=== PATIENT | male | born 1995 | race Caucasian/White ===

== ENCOUNTER 2019-09-24 16:23 | Emergency (ER) | payer OTHER ==
[2019-09-24 17:13] VITALS: BP 134/87; TEMP 98.8; O2SAT 100
--- OUTSIDE RECORDS SUMMARY | 2019-09-24 20:46 | XMS REPORT | Continuity of Care Document ---
:1995 Author Organization [employer] Care Team Providers Name Role Phone Yummly Information [facility] Unavailable Un available Problems Problem Status Onset Classification Date Comments Sourc e Date Reported ACUTE SUBDURAL [place]18[place] [facility] Unspecified [place]/17[place] intracranial 17 Medical injury with loss Th[address] ter of consciousness of unspecified duration, initial encounter HEAD INJURY Active 02/17/[address] BRAIN BLEED Active 02/17/[address] Attention deficit Resolved Problem 02/20/2017 [place] hyperactivity Medica l disorder Center (disorder) [place]TRAUMATIC [place] ACUTE SUBDURAL Medic al HEMORRHAGE Center Medications Medication Details Route Status Patient Ordering Order Source Instructions Provider Date tramadol 50 mg, PO, Active [place] hydrochloride Q4H, PRN Pain 017 Medi mabel 50 MG Oral Score 1-3, X Center Tablet 5 day, # 30 tab, 0 Refill(s) Levetiracetam 500 mg = 1 [place] 500 MG Oral tab, PO, 017 Medical Tablet Q12H, # 14 Center tab, 0 Refill(s) acetaminophen 99.5 F, 0 [place] 325 mg oral Refill(s) 017 Medical tablet Center Celebrex Notes: NSAID. Inactive [facility] Please check 017 Medical indication. Center Not for seizure. (Same As: CeleBREX) Tramadol Notes: Not to Inactive [facility] exceed 017 Medical 400mg/day. Center (Same As: Ultram) Saline Flush Notes: (Same Inactive [place] 0.9% as: BD 017 Medical Posiflush) Center Levetiracetam Notes: (Same Inactive [place] as:Keppra) 017 Medical Center sennosides, SNF Notes: (Same Inactive [facility] [place] as: Senokot) 017 Medical Center Docusate Notes: (Same Inactive [facility] as: Colace) 017 Medical (Do Not Center Crush) Regular 60 units) Inactive [facility] Insulin, Human WASTE: F/P - 017 Medi mabel 100 UNT/ML Black; E - Center Injectable Municipal Solution Trash Bin Stable for 28 days at room temperature Expires in days from _Date Dextrose 50% 12.5 gm, 25 Inactive [place] Syringe mL, Route: 017 Medical IVP, Drug Center Form: INJ, Dosing Weight 72.727, kg, PRN, PRN Abnormal Lab Result, Start date: 02/17/17 2:17:00 CDT, Duration: 30 day, Stop date: 03/19/17 1:16:00 [employer] SERVICES OFFICER Saline Flush Notes: (Same Inactive [place] 0.9% as: [place] 017 Medical Posiflush) Center Morphine Notes: (Same Inactive [facility] as:MORPhine 017 Medical Sulfate) Center Ondansetron Notes: (Same Inactive [place] as: Zofran) 017 Medical Center MEDICATION WASTE Product Size: 4 mg Product Wasted: ___ mg sodium chloride 1,000 mL, Inactive [place] 0.9% 1000 ml Rate: 75 017 Medical INJ 1,000 mL ml/hr, Infuse Cente r over: 13.3 hr, Route: IV, Dosing Weight 72.727 kg, Total Volume: 1,000, Start date: 02/17/17 2:17:00 CDT, Duration: 30 day, Stop date: 03/19/17 2:16:00 CAREER SERVICES OFFICER Acetaminophen Notes: (Same Inactive [facility] [place] 325 MG / as: [place] 017 Medical Hydrocodone 325/5) Do Center Bitartrate 5 MG not exceed Oral Tablet 4gm/day of acetaminophen . Acetaminophen Notes: Do not Inactive [facility] exceed 4 017 Medical gm/day. Center (Same as: Tylenol) Dextrose 50% 25 gm, 50 mL, No Longer [facility] Syringe Route: IVP, Active 017 Medical Drug Form: Center INJ, Dosing Weight 72.727, kg, PRN, PRN Abnormal Lab Result, Start date: 02/16/17 23:59:00 CDT, Duration: 30 day, Stop date: 03/18/17 22:58:00 CAREER SERVICES OFFICER Regular 60 units) No Longer [facility] Insulin, Human WASTE: F/P - Active 017 Medi mabel 100 UNT/ML Black; E - Center Injectable Municipal Solution Trash Bin Stable for 28 days at room temperature Expires in days from _Date Saline Flush Notes: (Same No Longer [place] 0.9% as: BD Active 017 Medical Posiflush) Center Levetiracetam Notes: Same Inactive [facility] [place] Keppra 017 Medical Mix with 100 Center mL NS, LR or D5W MEDICATION WASTE Product Size: 500 mg Product Wasted: ___ mg Morphine Notes: (Same No Longer [facility] as:MORPhine Active 017 Medical Sulfate) Center Ondansetron Notes: (Same No Longer [facility] as: Zofran) Active 017 Medical Center MEDICATION WASTE Product Size: 4 mg Product Wasted: ___ mg Acetaminophen Notes: Do not No Longer [facility] exceed 4 Active 017 Medical gm/day. Center (Same as: Tylenol) Acetaminophen Notes: (Same No Longer [facility] 325 MG / as: [place] Active 017 Medical Hydrocodone 325/5) Do Center Bitartrate 5 MG not exceed Oral Tablet 4gm/day of acetaminophen . sodium chloride 1,000 mL, No Longer [place] 0.9% 1000 ml Rate: 75 Active 017 Medical INJ 1,000 mL ml/hr, Infuse Cente r over: 13.3 hr, Route: IV, Dosing Weight 72.727 kg, Total Volume: 1,000, Start date: 02/16/17 23:59:00 CDT, Duration: 30 day, Stop date: 03/18/17 23:58:00 CAREER SERVICES OFFICER Allergies, Adverse Reactions, Alerts No Known Medication Allergies Immunizations No Data Provided for This Section Results Order Name Results Value Reference Date Interpretation Comments Magalie rce Range ELECTROLYTES AGAP 16.0 10.0 - 02/17 [place] 20.0 [facility] ELECTROLYTES eGFR 127 02/17 Result Comment: The [facility] eGFR is Center calculated using the CKD-EPI formula. In most young, healthy individuals the eGFR will be >90 mL/min/1.73m2 . The eGFR declines with age. An eGFR of 60-89 may be normal in some populations, particularly the elderly, for whom the CKD-EPI formula has not been extensively validated. Use of the eGFR is not recommended in the following populations:< br/>
Chanel viduals with unstable creatinine concentration s, including patients and those with serious co-morbid conditions.<b r/>
Patie nts with extremes in muscle mass or diet.

The data above are obtained from the National Kidney Disease Education Program (NKDEP) which additionally recommends that when the eGFR is used in patients with extremes of body mass index for purposes of drug dosing, the eGFR should be multiplied by the estimated BMI. ELECTROLYTES CO2 24 24 - 32 02/17 [facility] ELECTROLYTES Calcium Lvl 8.9 8.5 - 10.5 02/17 [place] [facility] ELECTROLYTES Chloride Lvl 107 95 - 109 02/17 [place] [facility] ELECTROLYTES Potassium Lvl 4.0 3.5 - 5.1 02/17 [facility] ELECTROLYTES Creatinine 0.81 0.50 - 02/17 [facility] Lvl 1.40 [facility] ELECTROLYTES Sodium Lvl 143 135 - 145 02/17 [place] [facility] ELECTROLYTES Glucose Lvl 77 70 - 99 02/17 [place] [facility] ELECTROLYTES BUN 17 7 - 22 02/17 [facility] HEMATOLOGY PTT 28.6 22.9 - 02/17 [place] 35.8 [facility] HEMATOLOGY PT 12.3 12.0 - 02/17 [place] 14.7 [facility] HEMATOLOGY INR 0.91 0.85 - 02/17 [place] 1.17 [facility] HEMATOLOGY Platelet 194 133 - 450 02/17 [facility] HEMATOLOGY RDW 13.8 11.5 - 02/17 [place] 14.5 [facility] HEMATOLOGY MPV 10.0 7.4 - 10.4 02/17 [facility] HEMATOLOGY MCH 29.2 27.0 - 02/17 [place] 31.0 [facility] HEMATOLOGY MCV 88.0 80.0 - 02/17 94.0 [facility] HEMATOLOGY Hct 41.0 42.0 - 02/17 [place] 54.0 [facility] HEMATOLOGY RBC 4.66 4.70 - 02/17 [place] 6. [facility] HEMATOLOGY MCHC 33.2 32.0 - 02/17 [place] 36.0 [facility] HEMATOLOGY WBC 9.0 3.7 - 10.4 02/17 [facility] HEMATOLOGY Hgb 13.6 14.0 - 02/17 18.0 [facility] HEMATOLOGY Segs-Bands # 4.0 1.5 - 8.1 02/17 [facility] HEMATOLOGY Lymphocytes # 4.3 1.0 - 5.5 02/17 [facility] HEMATOLOGY Eosinophils # 0.1 0.0 - 0.5 02/17 [facility] HEMATOLOGY Monocytes # 0.6 0.0 - 0.8 02/17 [facility] HEMATOLOGY Monocytes 6.9 2.0 - 12.0 02/17 [facility] HEMATOLOGY Basophils 0.5 0.0 - 1.0 02/17 [facility] HEMATOLOGY Eosinophils 0.7 0.0 - 4.0 02/17 [facility] HEMATOLOGY Lymphocytes 47.1 20.0 - 02/17 40.0 [facility] HEMATOLOGY Segs 44.8 45.0 - 02/17 [place] 75.0 [facility] CHEM PANEL eGFR 122 02/17 [facility] Comment: The Medical eGFR is Center calculated using the CKD-EPI formula. In most young, healthy individuals the eGFR will be >90 mL/min/1.73m2 . The eGFR declines with age. An eGFR of 60-89 may be normal in some populations, particularly the elderly, for whom the CKD-EPI formula has not been extensively validated. Use of the eGFR is not recommended in the following populations:< br/>
Chanel viduals with unstable creatinine concentration s, including patients and those with serious co-morbid conditions.<b r/>
Patie nts with extremes in muscle mass or diet.

The data above are obtained from the National Kidney Disease Education Program (NKDEP) which additionally recommends that when the eGFR is used in patients with extremes of body mass index for purposes of drug dosing, the eGFR should be multiplied by the estimated BMI. CHEM PANEL Calcium Lvl 9.0 8.5 - 10.5 02/17 [facility] CHEM PANEL CO2 25 24 - 32 02/17 [facility] CHEM PANEL BUN 13 7 - 22 02/17 2016 [facility] CHEM PANEL Creatinine 0.89 0.50 - 02/17 [place] Lvl 1.40 [facility] CHEM PANEL Glucose Lvl 108 70 - 99 02/17 [facility] CHEM PANEL Sodium Lvl 141 135 - 145 02/17 2016 [facility] CHEM PANEL Potassium Lvl 3.9 3.5 - 5.1 02/17 [facility] CHEM PANEL Chloride Lvl 107 95 - 109 02/17 [facility] CHEM PANEL AGAP 12.9 10.0 - 02/17 [place] 20.0 [facility] HEMATOLOGY Segs-Bands # 4.1 1.5 - 8.1 02/17 [facility] HEMATOLOGY Basophils 0.3 0.0 - 1.0 02/17 [facility] HEMATOLOGY Eosinophils 0.5 0.0 - 4.0 02/17 [facility] HEMATOLOGY Monocytes 5.3 2.0 - 12.0 02/17 [facility] HEMATOLOGY Lymphocytes 47.3 20.0 - 02/17 [place] 40.0 [facility] HEMATOLOGY Monocytes # 0.5 0.0 - 0.8 02/17 [facility] HEMATOLOGY Lymphocytes # 4.2 1.0 - 5.5 02/17 [facility] HEMATOLOGY Segs 46.6 45.0 - 02/17 [place] 75.0 [facility] HEMATOLOGY WBC 8.9 3.7 - 10.4 02/17 [facility] HEMATOLOGY Hgb 14.3 14.0 - 02/17 [place] 18.0 [facility] HEMATOLOGY RBC 4.93 4.70 - 02/17 [facility] 6. [facility] HEMATOLOGY MCHC 33.2 32.0 - 02/17 [facility] 36.0 /2016 [facility] HEMATOLOGY MCH 28.9 27.0 - 02/17 [facility] 31.0 [facility] HEMATOLOGY MCV 87.2 80.0 - 02/17 [facility] 94.0 /2016 [facility] HEMATOLOGY Hct 43.0 42.0 - 02/17 [place] 54.0 /2016 [facility] HEMATOLOGY MPV 9.6 7.4 - 10.4 02/17 [facility] HEMATOLOGY Platelet 193 133 - 450 02/17 [facility] HEMATOLOGY RDW 14.0 11.5 - 02/17 [facility] 14.5 [facility] HEMATOLOGY INR 0.91 0.85 - 02/17 [facility] 1.17 [facility] HEMATOLOGY PTT 30.1 22.9 - 02/17 [facility] 35.8 /2016 [facility] HEMATOLOGY PT 12.3 12.0 - 02/17 [facility] 14.7 [facility] Pathology Reports No Data Provided for This Section Diagnostic Reports Report Value Date Source Brain wo contrast CT 02/16/2017 [facility] dical EXAMINATION: CT head without contrast Center DATE: 02/16/2017 INDICATION: Subdural hematoma. FINDINGS: Noncontrast CT images of the head are compared to a study acquired 6 hours earlier the same day at an outside institution. The previously noted subdura l hemorrhage along the anterior falx and only be identified in retrospect on the current study. There certainly no increase in size. The remainder the brain is c ompletely normal. The calvarium and skull base are intact IMPRESSION: Resolving minimal intracranial hemorrhage. Brain-Outside Consult 02/16/2017 [facility] CT EXAMINATION: CT head without contrast Center DATE: 02/16/2017 INDICATION: Trauma. FINDINGS: Noncontrast CT images of the head and straight trace amount of subdural hemorrhage along the left aspect of the falx. There is no other intracranial abnormality. The calvarium and skull base are intact. IMPRESSION: Minimal flow seen subdural hemorrhage, concur wi th outside report. Spine-Outside Consult 02/16/2017 [facility] CT EXAMINATION: CT cervical spine without contrast Center DATE: 02/16/2017 INDICATION: Trauma. FINDINGS: Noncontrast CT images of the cervical spine are performed with multiplanar reformatting at an outside institution and submitted for reinterpretation following transfer. There is no fracture or disl ocation. There is some reversal the normal cervical lordosis, likely secondary to positioning. IMPRESSION: Negative exam; concur with outside report. Consultation Notes No Data Provided for This Section Discharge Summaries No Data Provided for This Section History and Physicals No Data Provided for This Section Vital Signs Vital Sign Value Date Comments Source Weight 68.182 02/17/2017 [facility] Heart Rate 103 02/17/2017 [facility] Systolic (mm Hg) 127 02/17/2017 [facility] dical Center Diastolic (mm Hg) 84 02/17/2017 [facility] Respitory Rate 18 02/17/2017 [facility] Temperature Oral (F) 98.0 F 02/17/2017 [facility] BMI Calculated 26.63 02/17/2017 [facility] Weight 68.182 02/17/2017 [facility] Height 160.02 cm 02/17/2017 [facility] Center Temperature Oral (F) 98.2 F 02/17/2017 [facility] Respitory Rate 18 02/17/2017 [facility] Heart Rate 87 02/17/2017 [facility] Systolic (mm Hg) 129 02/17/2017 [facility] dical Center Diastolic (mm Hg) 73 02/17/2017 [facility] BMI Calculated 26.63 02/17/2017 [facility] Height 160.02 cm 02/17/2017 [facility] Weight 68.182 02/17/2017 [facility] Systolic (mm Hg) 126 02/17/2017 [facility] dical Center Diastolic (mm Hg) 76 02/17/2017 [facility] Respitory Rate 18 02/17/2017 [facility] Heart Rate 105 02/17/2017 [facility] Temperature Oral (F) 98.6 F 02/17/2017 [facility] BMI Calculated 25.88 02/17/2017 [facility] Weight 72.727 02/17/2017 [facility] Systolic (mm Hg) 119 02/17/2017 [facility] dical Center Diastolic (mm Hg) 74 02/17/2017 [facility] Heart Rate 83 02/17/2017 [facility] Temperature Oral (F) 98.3 F 02/17/2017 [facility] Respitory Rate 18 02/17/2017 [facility] Height 167.64 cm 02/17/2017 [facility] Systolic (mm Hg) 115 02/17/2017 [facility] Diastolic (mm Hg) 55 02/17/2017 [facility] Heart Rate 95 02/17/2017 [facility] Respitory Rate 18 02/17/2017 [facility] Weight 81.818 02/17/2017 [facility] BMI Calculated 29.11 02/17/2017 [facility] Temperature Oral (F) 97.8 F 02/17/2017 [facility] Height 167.64 cm 02/17/2017 [facility] Encounters Location Location Encounter Encounter Reason Attending ADM DC Stat us Source Details Type Number For Provider Date Date Visit [facility] [id number] Julio Grier 02/17 02/17 [facility] [id number] Julio Grier 02/17 02/17 [facility] Observation [id number] Julio Grier 02/17 02/17 [facility] Procedures No Data Provided for This Section Assessment and Plan No Data Provided for This Section Plan of Care No Data Provided for This Section Social History Social History Date Source Social History TypeResponse 02/17/2017 [facility] Smoking Status Current every day smoker; Type: Cigarett es; Exposure to Tobacco Smoke None; Cigarette Smoking Last 365 Days Yes; Reg Smoking Cessation Counseling No Family History No Data Provided for This Section Advance Directives No Data Provided for This Section Functional Status No Data Provided for This Section
--- NOTE | 2019-09-28 16:03 | EDPHYS ---
Physician Documentation [facility] Name: Lawrence Antunez III Age: 24 yrs Sex: Male : 1995 Arrival Date: 09/24/2019 Time: 16:27 Bed 23 Private MD: ED Physician Joseph Saxena HPI: 09/23 16:58 This 24 yrs old Male presents to ER via Ambulatory with complaints of jmm Laceration To Hand. 16:58 The patient has a laceration occurred at home. Onset: The symptoms/episode jmm began/occurred acutely, just prior to arrival. Associated signs and symptoms: Pertinent negatives: heavy bleeding, loss of consciousness. This is a 24 year old male with no chronic medical conditions that presents to the ED with complaints of a laceration to his left hand. Patient states he fell back wards on a broken metal tank yesterday. Patient used super glue to repair wound. . Historical: - Allergies: 16:39 No Known Allergies; ll1 - PMHx: 16:39 None; ll1 - PSHx: 16:39 None; ll1 - Immunization history:: Last tetanus immunization: < 5 years ago. - Social history:: Smoking status: Patient reports the use of cigarette tobacco products, smokes one-half pack cigarettes per day, Patient/guardian denies using alcohol, street drugs, tobacco products. ROS: 16:59 Constitutional: Negative for fever, chills, and weight loss, Cardiovascular: Negative jmm for chest pain, palpitations, and edema, Respiratory: Negative for shortness of breath, cough, wheezing, and pleuritic chest pain. 16:59 Skin: Positive for laceration(s). 16:59 All other systems are negative. Exam: 16:59 Constitutional: This is a well developed, well nourished patient who is awake, alert, jmm and in no acute distress. Head/Face: atraumatic. Eyes: EOMI, no conjunctival erythema appreciated ENT: Moist Mucus Membranes Neck: Trachea midline, Supple Chest/axilla: Normal chest wall appearance and motion. Cardiovascular: Regular rate and rhythm. No edema appreciated Respiratory: Normal respirations, no respiratory distress appreciated Back: Normal ROM 16:59 Musculoskeletal/extremity: FROM appreciated to the left hand, < 2 sec dist cap refill m compartments are soft, NVI. 16:59 Skin: 4 cm laceration noted to the hypothenar region of the left hand, no active bleeding appreciated, compartments are soft. 16:59 Neuro: Exam negative for Orientation: is normal, Mentation: is normal, Memory: is normal. 16:59 Psych: Behavior/mood is pleasant, cooperative. Vital Signs: 16:36 BP 134 / 87; Pulse 96; Resp 17; Temp 98.8; Pulse Ox 100% ; Weight 77.11 kg; Height 5 ll1 ft. 8 in. (172.72 cm); Pain 7/10; 16:36 Body Mass Index 25.85 (77.11 kg, 172.72 cm) ll1 MDM: 16:52 Patient medically screened. [facility] 17:01 Data reviewed: vital signs, nurses notes. Counseling: I had a detailed discussion with jam the patient and/or guardian regarding: the historical points, exam findings, and any diagnostic results supporting the discharge/admit diagnosis, the need for outpatient follow up, to return to the emergency department if symptoms worsen or persist or if there are any questions or concerns that arise at home. ED course: Tetanus is UTD, patient out of window for safe window for repair. Patient given wound infection return precautions. Patient understood and agrees with the plan of care. . Administered Medications: No medications were administered Disposition: 09/24/19 17:02 Discharged to Home. Impression: Laceration of the Hand. - Condition is Stable. - Discharge Instructions: Nonsutured Laceration Care. - Prescriptions for Cephalexin 500 mg Oral Capsule - take 1 capsule by ORAL route every 6 hours for 10 days; 40 capsule. - Medication Reconciliation Form, Thank You Letter, Antibiotic Education, Prescription Opioid Use form. - Follow up: Private Physician; When: 2 - 3 days; Reason: Recheck today's complaints, Continuance of care, Re-evaluation by your physician. Addendum: 09/26/2019 07:55 Co-signature as Attending Physician, Joseph Saxena MD I agree with the assessment and k dr plan of care. Signatures: Joseph Saxena MD MD kdr Mickail, Joel, PA PA jmm Williams, Irene, RN RN iw Juan Antonio Anderson RN RN ll1 Corrections: (The following items were deleted from the chart) 09/23 17:07 17:02 09/24/2019 17:02 Discharged to Home. Impression: Laceration of the Hand. iw Condition is Stable. Forms are Medication Reconciliation Form, Thank You Letter, Antibiotic Education, Prescription Opioid Use. Follow up: Private Physician; When: 2 - 3 days; Reason: Recheck today's complaints, Continuance of care, Re-evaluation by your physician. jam
--- NOTE | 2019-09-28 16:03 | ER ---
Nurse's Notes [facility] Name: Lawrence Antunez III Age: 24 yrs Sex: Male : 1995 Arrival Date: 09/24/2019 Time: 16:27 Bed 23 Private MD: Diagnosis: Laceration of the Hand Presentation: 09/23 16:36 Chief complaint: Patient states: Left hand laceration yesterday at 0800. On xin ll1 metal. Site is red, painful now. Coronavirus screen: Proceed with normal triage. Patient denies a cough. Patient denies shortness of breath or difficulty breathing. Patient denies measured and/or subjective temperature greater than 100.4F prior to today's visit. Patient denies travel on a cruise ship or to a country the [facility] [place] currently lists as an affected area. Patient denies contact with known and/or suspected case of COVID-19. Ebola Screen: Patient denies travel to an Ebola-affected area in the 21 days before illness onset. Complicating Factors: There are no complicating factors for this patient. Initial Sepsis Screen: Does the patient meet any 2 criteria? HR > 90 bpm. No. Patient's initial sepsis screen is negative. Does the patient have a suspected source of infection? No. Patient's initial sepsis screen is negative. Risk Assessment: Do you want to hurt yourself or someone else? Patient reports no desire to harm self or others. Onset of symptoms was September 23, 2019. 16:36 Method Of Arrival: Ambulatory ll1 16:36 Acuity: NORI 4 ll1 Triage Assessment: 16:30 General: Appears in no apparent distress. Behavior is calm. iw Historical: - Allergies: 16:39 No Known Allergies; ll1 - PMHx: 16:39 None; ll1 - PSHx: 16:39 None; ll1 - Immunization history:: Last tetanus immunization: < 5 years ago. - Social history:: Smoking status: Patient reports the use of cigarette tobacco products, smokes one-half pack cigarettes per day, Patient/guardian denies using alcohol, street drugs, tobacco products. Screenin:00 Abuse screen: Denies threats or abuse. Denies injuries from another. Nutritional iw screening: No deficits noted. Tuberculosis screening: No symptoms or risk factors identified. Fall Risk None identified. Assessment: 16:30 General: Appears in no apparent distress. comfortable, Behavior is calm, cooperative. iw Pain: Complains of pain in left hand. Neuro: Level of Consciousness is awake, alert, obeys commands, Oriented to person, place, time, situation. Cardiovascular: Patient's skin is warm and dry. Respiratory: Respiratory effort is even, unlabored, Respiratory pattern is regular. Musculoskeletal: Range of motion: intact in all extremities. Injury Description: Laceration sustained to palm of left hand is jagged, 0.5 to 2.5 cm long. Vital Signs: 16:36 BP 134 / 87; Pulse 96; Resp 17; Temp 98.8; Pulse Ox 100% ; Weight 77.11 kg; Height 5 ll1 ft. 8 in. (172.72 cm); Pain 7/10; 16:36 Body Mass Index 25.85 (77.11 kg, 172.72 cm) 1 ED Course: 16:27 Patient arrived in ED. [facility] 16:34 Chip Flynn PA is PHCP. [facility] 16:34 Joseph Saxena MD is Attending Physician. [facility] 16:36 Patient has correct armband on for positive identification. iw 16:38 Triage completed. ll1 16:39 Arm band placed on. 1 17:00 Loren Burkett, RN is Primary Nurse. iw 17:05 No provider procedures requiring assistance completed. Patient did not have IV access iw during this emergency room visit. Administered Medications: No medications were administered Outcome: 17:02 Discharge ordered by . [facility] 17:06 Discharged to home ambulatory. iw 17:06 Condition: good 17:06 Discharge instructions given to patient, Instructed on discharge instructions, follow up and referral plans. medication usage, Demonstrated understanding of instructions, follow-up care, medications, Prescriptions given X 1. 17:07 Patient left the ED. iw Signatures: Chip Flynn PA PA jmm Williams, Irene, RN RN Gabino Sosa 1 Juan Antonio Anderson RN RN [facility]
== END 2019-09-24 17:07 | disposition home or self-care (01) ==
LOC: ER 16:23
DX: S61.412A Laceration without foreign body of left hand, initial encounter (principal); W26.8XXA Contact with other sharp object(s), not elsewhere classified, initial encounter; Y93.9 Activity, unspecified; Y92.9 Unspecified place or not applicable; F17.210 Nicotine dependence, cigarettes, uncomplicated
CPT/HCPCS: 99282

== ENCOUNTER 2019-10-28 08:02 | Emergency (ER) | payer OTHER ==
--- OUTSIDE RECORDS SUMMARY | 2019-10-28 08:07 | XMS REPORT | Continuity of Care Document ---
:1995 Author Organization [employer] Care Team Providers Name Role Phone [email or web address] Information Modulus Unavailable Un available Problems Problem Status Onset Classification Date Comments Sourc e Date Reported ACUTE SUBDURAL [place] 02/18/20 [place] HEMAT[facility] Unspecified [place]/17[place] intracranial 17 Medical injury with loss [address] [facility] of consciousness of unspecified duration, initial encounter HEAD INJURY Active 02/17/[address] BRAIN BLEED Active 02/17/[address] Attention deficit Resolved Problem 02/20/2017 M [...] Medical tablet Center Celebrex Notes: NSAID. Inactive [facility] Please check 017 Medical indication. Center Not for seizure. (Same As: CeleBREX) Tramadol Notes: Not to Inactive [facility] exceed 017 Medical 400mg/day. Center (Same As: Ultram) Saline Flush Notes: (Same Inactive [place] 0.9% as: BD 017 Medical Posiflush) Center Levetiracetam Notes: (Same Inactive [place] as:Keppra) 017 Medical Center sennosides, RETIREMENT Notes: (Same Inactive [facility] [place] as: Senokot) 017 Medical Center Docusate Notes: (Same Inactive [facility] as: Colace) 017 Medical (Do Not Center Crush) Regular 60 units) Inactive [facility] Insulin, Human WASTE: F/P - 017 Medi [...] Duration: 30 day, Stop date: 03/19/17 1:16:00 BULK LOADER Saline Flush Notes: (Same Inactive [place] 0.9% as: BD 017 Medical Posiflush) Center Morphine Notes: (Same Inactive [facility] as:MORPhine 017 Medical Sulfate) Center Ondansetron Notes: [...] Duration: 30 day, Stop date: 03/19/17 2:16:00 BULK LOADER Acetaminophen Notes: (Same Inactive [facility] [place] 325 MG / as: [place] 017 Medical Hydrocodone 325/5) Do Center Bitartrate 5 MG not exceed Oral Tablet 4gm/day of acetaminophen . Acetaminophen Notes: Do not Inactive [facility] exceed 4 017 Medical gm/day. Center (Same as: Tylenol) Dextrose 50% 25 gm, 50 mL, No Longer [facility] Syringe Route: IVP, Active 017 Medical Drug Form: Center INJ, Dosing Weight 72.727, kg, PRN, PRN Abnormal Lab Result, Start date: 02/16/17 23:59:00 CDT, Duration: 30 day, Stop date: 03/18/17 22:58:00 BULK LOADER Regular 60 units) No Longer [facility] Insulin, Human WASTE: F/P - Active 017 Medi mabel 100 UNT/ML Black; E - Center Injectable [employer] Trash Bin Stable for 28 days at room temperature Expires in days from _Date Saline Flush Notes: (Same No Longer [place] 0.9% as: BD Active 017 Medical Posiflush) Center Levetiracetam Notes: Same Inactive [facility] [place] as Keppra 017 Medical Mix with 100 Center mL NS, LR or D5W MEDICATION WASTE Product Size: 500 mg Product Wasted: ___ mg Morphine Notes: (Same No Longer [facility] as:MORPhine Active 017 Medical Sulfate) Center Ondansetron Notes: (Same No Longer [facility] as: Zofran) Active 017 Medical Center MEDICATION WASTE Product Size: 4 mg Product Wasted: ___ mg Acetaminophen Notes: Do not No Longer [facility] exceed 4 Active 017 Medical gm/day. Center (Same as: Tylenol) Acetaminophen Notes: (Same No Longer [facility] 325 MG / as: [place] Active 017 Medical Hydrocodone 325/5) Do Center [...] Duration: 30 day, Stop date: 03/18/17 23:58:00 BULK LOADER Allergies, Adverse Reactions, Alerts No Known Medication Allergies Immunizations No Data Provided for This Section Results Order Name Results Value Reference Date Interpretation Comments Magalie rce Range ELECTROLYTES AGAP 16.0 10.0 - 02/17 [place] 20.0 [facility] ELECTROLYTES eGFR 127 02/17 Result Comment: [facility] eGFR is Center calculated using the CKD-EPI [...] ELECTROLYTES CO2 24 24 - 32 02/17 [facility] ELECTROLYTES Calcium Lvl 8.9 8.5 - 10.5 02/17 [place] [facility] ELECTROLYTES Chloride Lvl 107 95 - 109 02/17 [place] [facility] ELECTROLYTES Potassium Lvl 4.0 3.5 - 5.1 02/17 [facility] ELECTROLYTES Creatinine 0.81 0.50 - 02/17 [facility] Lvl 1.40 [facility] ELECTROLYTES Sodium Lvl 143 135 - 145 02/17 [place] [facility] ELECTROLYTES Glucose Lvl 77 70 - 99 02/17 [place] [facility] ELECTROLYTES BUN 17 7 - 22 02/17 [facility] HEMATOLOGY PTT 28.6 22.9 - 02/17 [place] 35.8 [facility] HEMATOLOGY PT 12.3 12.0 - 02/17 [place] 14.7 [facility] HEMATOLOGY INR 0.91 0.85 - 02/17 [place] 1.17 [facility] HEMATOLOGY Platelet 194 133 - 450 02/17 [facility] HEMATOLOGY RDW 13.8 11.5 - 02/17 [place] 14.5 [facility] HEMATOLOGY MPV 10.0 7.4 - 10.4 02/17 [facility] HEMATOLOGY MCH 29.2 27.0 - 02/17 [place] 31.0 [facility] HEMATOLOGY MCV 88.0 80.0 - 02/17 94.0 [facility] HEMATOLOGY Hct 41.0 42.0 - 02/17 [place] 54.0 [facility] HEMATOLOGY RBC 4.66 4.70 - 02/17 [place] 6. [facility] HEMATOLOGY MCHC 33.2 32.0 - 02/17 [place] 36.0 [facility] HEMATOLOGY WBC 9.0 3.7 - 10.4 02/17 [facility] HEMATOLOGY Hgb 13.6 14.0 - 02/17 18.0 [facility] HEMATOLOGY Segs-Bands # 4.0 1.5 - 8.1 02/17 [facility] HEMATOLOGY Lymphocytes # 4.3 1.0 - 5.5 02/17 [facility] HEMATOLOGY Eosinophils # 0.1 0.0 - 0.5 02/17 [facility] HEMATOLOGY Monocytes # 0.6 0.0 - 0.8 02/17 [facility] HEMATOLOGY Monocytes 6.9 2.0 - 12.0 02/17 [facility] HEMATOLOGY Basophils 0.5 0.0 - 1.0 02/17 [facility] HEMATOLOGY Eosinophils 0.7 0.0 - 4.0 02/17 [facility] HEMATOLOGY Lymphocytes 47.1 20.0 - 02/17 40.0 [facility] HEMATOLOGY Segs 44.8 45.0 - 02/17 [place] 75.0 [facility] CHEM PANEL eGFR 122 02/17 [facility] Comment: The Medical eGFR is Center calculated [...] Calcium Lvl 9.0 8.5 - 10.5 02/17 [facility] CHEM PANEL CO2 25 24 - 32 02/17 [facility] CHEM PANEL BUN 13 7 - 22 02/17 2016 [facility] CHEM PANEL Creatinine 0.89 0.50 - 02/17 [place] Lvl 1.40 [facility] CHEM PANEL Glucose Lvl 108 70 - 99 02/17 [facility] CHEM PANEL Sodium Lvl 141 135 - 145 02/17 2016 [facility] CHEM PANEL Potassium Lvl 3.9 3.5 - 5.1 02/17 [facility] CHEM PANEL Chloride Lvl 107 95 - 109 02/17 [facility] CHEM PANEL AGAP 12.9 10.0 - 02/17 [place] 20.0 [facility] HEMATOLOGY Segs-Bands # 4.1 1.5 - 8.1 02/17 [facility] HEMATOLOGY Basophils 0.3 0.0 - 1.0 02/17 [facility] HEMATOLOGY Eosinophils 0.5 0.0 - 4.0 02/17 [facility] HEMATOLOGY Monocytes 5.3 2.0 - 12.0 02/17 [facility] HEMATOLOGY Lymphocytes 47.3 20.0 - 02/17 [place] 40.0 [facility] HEMATOLOGY Monocytes # 0.5 0.0 - 0.8 02/17 [facility] HEMATOLOGY Lymphocytes # 4.2 1.0 - 5.5 02/17 [facility] HEMATOLOGY Segs 46.6 45.0 - 02/17 [place] 75.0 [facility] HEMATOLOGY WBC 8.9 3.7 - 10.4 02/17 [facility] HEMATOLOGY Hgb 14.3 14.0 - 02/17 [place] 18.0 [facility] HEMATOLOGY RBC 4.93 4.70 - 02/17 [facility] 6. [facility] HEMATOLOGY MCHC 33.2 32.0 - 02/17 [facility] 36.0 /2016 [facility] HEMATOLOGY MCH 28.9 27.0 - 02/17 [facility] 31.0 [facility] HEMATOLOGY MCV 87.2 80.0 - 02/17 [facility] 94.0 /2016 [facility] HEMATOLOGY Hct 43.0 42.0 - 02/17 [place] 54.0 /2016 [facility] HEMATOLOGY MPV 9.6 7.4 - 10.4 02/17 [facility] HEMATOLOGY Platelet 193 133 - 450 02/17 [facility] HEMATOLOGY RDW 14.0 11.5 - 02/17 [facility] 14.5 [facility] HEMATOLOGY INR 0.91 0.85 - 02/17 [facility] 1.17 [facility] HEMATOLOGY PTT 30.1 22.9 - 02/17 [facility] 35.8 /2016 [facility] HEMATOLOGY PT 12.3 12.0 - 02/17 [facility] 14.7 [facility] Pathology Reports No Data Provided for This Section Diagnostic Reports Report Value Date Source Brain wo contrast CT 02/16/2017 [facility] dical EXAMINATION: CT head without contrast [...] Resolving minimal intracranial hemorrhage. Brain-Outside Consult 02/16/2017 [facility] CT EXAMINATION: CT head without contrast Center DATE: 02/16/2017 INDICATION: Trauma. FINDINGS: Noncontrast CT images of the head and straight trace amount of subdural hemorrhage along the left aspect of the falx. There is no other intracranial abnormality. The calvarium and skull base are intact. IMPRESSION: Minimal flow seen subdural hemorrhage, concur wi th outside report. Spine-Outside Consult 02/16/2017 [facility] CT EXAMINATION: CT cervical spine without contrast [...] Value Date Comments Source Weight 68.182 02/17/2017 [facility] [place] [facility] Heart Rate 103 02/17/2017 [facility] [place] [facility] Center Systolic (mm Hg) 127 02/17/2017 [facility] dical Center Diastolic (mm Hg) 84 02/17/2017 [facility] Respitory Rate 18 02/17/2017 [facility] Temperature Oral (F) 98.0 F 02/17/2017 [facility] [place] BMI Calculated 26.63 02/17/2017 [facility] Weight 68.182 02/17/2017 [facility] [place] [facility] [place] [facility] Height 160.02 cm 02/17/2017 [facility] Center Temperature Oral (F) 98.2 F 02/17/2017 [facility] [place] Respitory Rate 18 02/17/2017 [facility] Heart Rate 87 02/17/2017 [facility] [place] [facility] [place] [facility] Systolic (mm Hg) 129 02/17/2017 [facility] dical Center Diastolic (mm Hg) 73 02/17/2017 [facility] BMI Calculated 26.63 02/17/2017 [facility] Height 160.02 cm 02/17/2017 [facility] [place] [facility] [place] [facility] Weight 68.182 02/17/2017 [facility] [place] [facility] [place] [facility] Center Systolic (mm Hg) 126 02/17/2017 [facility] dical Center Diastolic (mm Hg) 76 02/17/2017 [facility] Respitory Rate 18 02/17/2017 [facility] Heart Rate 105 02/17/2017 [facility] [place] [facility] [place] [facility] Center Temperature Oral (F) 98.6 F 02/17/2017 [facility] [place] BMI Calculated 25.88 02/17/2017 [facility] Weight 72.727 02/17/2017 [facility] [place] [facility] [place] [facility] Center Systolic (mm Hg) 119 02/17/2017 [facility] dical Center Diastolic (mm Hg) 74 02/17/2017 [facility] Heart Rate 83 02/17/2017 [facility] Temperature Oral (F) 98.3 F 02/17/2017 [facility] [place] Respitory Rate 18 02/17/2017 [facility] Height 167.64 cm 02/17/2017 [facility] Systolic (mm Hg) 115 02/17/2017 [facility] Diastolic (mm Hg) 55 02/17/2017 [facility] Heart Rate 95 02/17/2017 [facility] Respitory Rate 18 02/17/2017 [facility] Weight 81.818 02/17/2017 [facility] BMI Calculated 29.11 02/17/2017 [facility] Temperature Oral (F) 97.8 F 02/17/2017 [facility] [place] Height 167.64 cm 02/17/2017 [facility] Encounters Location Location Encounter Encounter Reason Attending ADM DC Stat us Source Details Type Number For Provider Date Date Visit [facility] [id number] Julio Grier 02/17 02/17 [facility] [id number] Julio Grier 02/17 02/17 [facility] Observation [id number] Julio Grier 02/17 02/17 [facility] Procedures No Data Provided for This Section Assessment and Plan No Data Provided for This Section Plan of Care No Data Provided for This Section Social History Social History Date Source Social History TypeResponse 02/17/2017 [facility] Smoking Status Current every day smoker; Type: Cigarett es; Exposure to Tobacco Smoke None; Cigarette Smoking Last 365 Days Yes; Reg Smoking Cessation Counseling No Family History No Data Provided for This Section Advance Directives No Data Provided for This Section Functional Status No Data Provided for This Section
--- NOTE | 2019-10-28 09:41 | EDPHYS ---
Physician Documentation [facility] Name: Lawrence Antunez III Age: 24 yrs Sex: Male : 1995 Arrival Date: 10/28/2019 Time: 08:02 Bed 11 Private MD: ED Physician Joseph Saxena HPI: 10/27 08:20 This 24 yrs old Male presents to ER via Unassigned with complaints of R/O cp COVID. 08:20 The patient or guardian reports cough, that is intermittent, with no sputum. Onset: The cp symptoms/episode began/occurred 2 day(s) ago. Associated signs and symptoms: Pertinent positives: diarrhea, nausea, sore throat, vomiting, Pertinent negatives: ear ache, fever, active vomiting. 08:20 Severity of symptoms: in the emergency department the symptoms are unchanged despite cp home interventions. Patient denies any known exposure to COVID-19. ROS: 08:22 Constitutional: Negative for body aches, chills, fever, poor PO intake. cp 08:22 Eyes: Negative for injury, pain, redness, and discharge. cp 08:22 ENT: Positive for sore throat, Negative for ear pain, difficulty swallowing, difficulty handling secretions. 08:22 Respiratory: Positive for cough, with no reported sputum, Negative for shortness of breath, wheezing. 08:22 Abdomen/GI: Positive for nausea, vomiting, and diarrhea, Negative for abdominal pain, constipation, anorexia. 08:22 : Negative for urinary symptoms. 08:22 Skin: Negative for rash. 08:22 Neuro: Negative for dizziness, headache, weakness. 08:22 All other systems are negative. Exam: 08:25 Constitutional: The patient appears in no acute distress, alert, awake, non-toxic, well cp developed, well nourished. 08:25 Head/Face: Normocephalic, atraumatic. cp 08:25 Eyes: Periorbital structures: appear normal, Conjunctiva: normal, no exudate, no injection, Lids and lashes: appear normal, bilaterally. 08:25 ENT: External ear(s): are unremarkable, Ear canal(s): are normal, clear, TM's: bulging, is not appreciated, bilaterally, dullness, bilaterally, erythema, is not appreciated, bilaterally, Nose: is normal, Mouth: is normal, Posterior pharynx: Airway: no evidence of obstruction, patent, Tonsils: no enlargement, no exudate, swelling, is not appreciated, erythema, that is mild, exudate, is not appreciated. 08:25 Neck: ROM/movement: is normal, is supple, no meningismus, no nuchal rigidity, Lymph nodes: no appreciated lymphadenopathy. 08:25 Chest/axilla: Inspection: normal. 08:25 Respiratory: the patient does not display signs of respiratory distress, Respirations: normal, no use of accessory muscles, no retractions, labored breathing, is not present, Breath sounds: are clear throughout, no decreased breath sounds, no stridor, no wheezing. 08:25 Abdomen/GI: Exam negative for discomfort, distension, guarding, Inspection: abdomen appears normal. 08:25 Skin: no rash present. Vital Signs: 08:30 BP 129 / 76; Pulse 89; Resp 18; Temp 99.1(TE); Pulse Ox 100% on R/A; Weight 65.77 kg; dm5 Height 5 ft. 9 in. (175.26 cm); Pain 5/10; 08:30 Body Mass Index 21.41 (65.77 kg, 175.26 cm) dm5 MDM: 08:19 Patient medically screened. cp 08:45 Differential diagnosis: bronchitis, flu, URI, strep throat, COVID-19. cp 09:38 Data reviewed: vital signs, nurses notes, lab test result(s), and as a result, I will cp discharge patient. 09:38 Counseling: I had a detailed discussion with the patient and/or guardian regarding: the cp historical points, exam findings, and any diagnostic results supporting the discharge/admit diagnosis, lab results, to return to the emergency department if symptoms worsen or persist or if there are any questions or concerns that arise at home. 09:38 ED course: VSS. Patient instructed to self quarantine until COVID-19 results are known. cp 10/27 08:33 Order name: COVID-19 cp 10/27 08:33 Order name: Flu cp 10/27 08:33 Order name: Strep cp 10/27 08:33 Order name: Document PUI#; Complete Time: 09:39 cp 10/27 08:33 Order name: Droplet/Contact Precautions; Complete Time: 09:39 cp 10/27 09:31 Order name: Throat Culture EDMS 10/27 08:33 Order name: Labs collected and sent; Complete Time: 09:38 cp 07 08:33 Order name: [facility] [phone]/ ; Complete Time: 09:38 cp 10/27 08:33 Order name: O2 Per Protocol; Complete Time: 09:39 cp Administered Medications: No medications were administered Disposition: 15:53 Co-signature as Attending Physician, Joseph Saxena MD I agree with the assessment and kdr plan of care. Disposition: 10/28/19 09:39 Discharged to Home. Impression: Acute upper respiratory infection, unspecified. - Condition is Stable. - Discharge Instructions: Upper Respiratory Infection, Adult. - Prescriptions for Tessalon Perles 100 mg Oral Capsule - take 2 capsule by ORAL route every 8 hours As needed; 30 capsule. - Work release form, Medication Reconciliation Form, Thank You Letter, Antibiotic Education, Prescription Opioid Use form. - Follow up: Private Physician; When: 2 - 3 days; Reason: Worsening of condition. - Problem is new. - Symptoms are unchanged. Signatures: Dispatcher [employer] [facility] Rose Zamora RN RN dm5 Joseph Saxena MD MD kdr Christopher Reyes PA PA cp Corrections: (The following items were deleted from the chart) 09:56 09:39 10/28/2019 09:39 Discharged to Home. Impression: Acute upper respiratory dm5 infection, unspecified. Condition is Stable. Forms are Medication Reconciliation Form, Thank You Letter, Antibiotic Education, Prescription Opioid Use. Follow up: Private Physician; When: 2 - 3 days; Reason: Worsening of condition. Problem is new. Symptoms are unchanged. cp
--- NOTE | 2019-10-28 09:57 | ER ---
Nurse's Notes [facility] Name: Lawrence Antunez III Age: 24 yrs Sex: Male : 1995 Arrival Date: 10/28/2019 Time: 08:02 Bed 11 Private MD: Diagnosis: Acute upper respiratory infection, unspecified Presentation: 10/27 08:30 Chief complaint: Patient states: n/v/diarrhea cough sore throat stared 2 days ago. dm5 Coronavirus screen: Surgical mask placed on patient. Patient moved to private room, placed in contact and droplet isolation with eye protection until further assessment. Patient reports a cough. Patient reports shortness of breath or difficulty breathing. Patient reports a measured and/or subjective temperature greater than 100.4F. Patient denies travel on a cruise ship or to a country the [facility] currently lists as an affected area. Patient denies contact with known and/or suspected case of COVID-19. Ebola Screen: Patient negative for fever greater than or equal to 101.5 degrees Fahrenheit, and additional compatible Ebola Virus Disease symptoms Patient denies exposure to infectious person. Patient denies travel to an Ebola-affected area in the 21 days before illness onset. No symptoms or risks identified at this time. Initial Sepsis Screen: Does the patient meet any 2 criteria? No. Patient's initial sepsis screen is negative. Does the patient have a suspected source of infection? Yes: Other: covid. Risk Assessment: Do you want to hurt yourself or someone else? Patient reports no desire to harm self or others. Onset of symptoms was October 25, 2019. 08:30 Method Of Arrival: Ambulatory dm5 08:30 Acuity: NORI 4 dm5 Vital Signs: 08:30 BP 129 / 76; Pulse 89; Resp 18; Temp 99.1(TE); Pulse Ox 100% on R/A; Weight 65.77 kg; dm5 Height 5 ft. 9 in. (175.26 cm); Pain 5/10; 08:30 Body Mass Index 21.41 (65.77 kg, 175.26 cm) dm5 ED Course: 08:02 Patient arrived in ED. ag5 08:07 Christopher Reyes PA is PHCP. cp 08:07 Joseph Saxena MD is Attending Physician. cp 08:30 Arm band placed on. dm5 09:37 Markjessiet, Rose, RN is Primary Nurse. dm5 09:56 Triage completed. dm5 Administered Medications: No medications were administered Outcome: 09:39 Discharge ordered by . wally 09:56 Patient left the ED. dm5 Addendum: 10/30/2019 12:32 Addendum: Other Attempted to contact pt regarding negative COVID-19 swab results. d m5 Received message that "the person you are trying to reach has a voice mailbox that has not been set up". Signatures: Rose Zamora, RN RN dm5 Christopher Reyes PA PA cp Gaskin, Ajare 5
[2019-10-28 10:04] VITALS: BP 129/76; TEMP 99.1; O2SAT 100
== END 2019-10-28 09:56 | disposition home or self-care (01) ==
LOC: ER 08:02
DX: J06.9 Acute upper respiratory infection, unspecified (principal); Z20.828 Contact with and (suspected) exposure to other viral communicable diseases
CPT/HCPCS: 87070; 87081; 87804 ×2; 99281; U0001

== ENCOUNTER 2020-06-11 06:49 | Emergency (ER) | payer SELFPAY ==
[2020-06-11 07:19] LABS: Absolute Lymphocytes (CBC) 2.5 K/uL (0.7-4.9); Basophils % 0.3 % (0-1.3); Hematocrit 39.5 % (39.6-49.0); MPV 10.3 fL (7.6-11.3); RBC Red Blood Cell Count 4.45 M/uL (4.33-5.43)
[2020-06-11 07:22] LABS: Protime INR 0.89
[2020-06-11 08:15] LABS: ALT/SGPT 52 U/L (12-78); AST/SGOT 32 U/L (15-37); Albumin 3.4 g/dL (3.4-5.0); Alkaline Phosphatase 66 U/L (45-117); BUN Blood Urea Nitrogen 17 mg/dL (7-18); Bicarbonate 30 mmol/L (21-32); Bilirubin Direct < 0.1 mg/dL (0-0.2); Bilirubin Total 0.2 mg/dL (0.2-1.0); Glucose Level 104 mg/dL (74-106); Potassium 3.6 mmol/L (3.5-5.1); Sodium Level 139 mmol/L (136-145)
--- NOTE | 2020-06-11 09:10 | ER ---
Nurse's Notes [facility] Name: Lawrence Antunez III Age: 24 yrs Sex: Male : 1995 Arrival Date: 06/11/2020 Time: 06:49 Bed 7 Private MD: Diagnosis: Laceration without foreign body of left forearm;Bipolar disorder Presentation: 06/11 06:50 Chief complaint: mental health officer said that patient's girlfriend broke up with him mg2 today and he slashed his left forearm with a pocket knife, superficial lacerations noted, no active bleeding present. he has history of SI before. Coronavirus screen: Client denies travel out of the [place] in the last 14 days. At this time, the client does not indicate any symptoms associated with coronavirus-19. Complicating Factors: pocket knife. Initial Sepsis Screen: Does the patient meet any 2 criteria? No. Patient's initial sepsis screen is negative. Does the patient have a suspected source of infection? No. Patient's initial sepsis screen is negative. Risk Assessment: Do you want to hurt yourself or someone else? Patient reports no desire to harm self or others. Onset of symptoms was June 11, 2020. 06:50 Method Of Arrival: EMS: [facility] 06:50 Acuity: NORI 2 mg2 06:51 Ebola Screen: No symptoms or risks identified at this time. ea Triage Assessment: 07:01 General: Appears in no apparent distress. Behavior is calm, cooperative, appropriate ea for age. Pain: Denies pain. Neuro: Level of Consciousness is awake, alert, obeys commands, Oriented to person, place, time. Respiratory: Airway is patent Respiratory effort is even, unlabored, Respiratory pattern is regular, symmetrical. Derm: Skin is pink, warm \\T\\ dry. Injury Description: Laceration sustained to dorsal aspect of left forearm and palmar aspect of left forearm is superficial, not bleeding, is bleeding a small amount. 07:01 General: Appears in no apparent distress. comfortable, Behavior is calm, cooperative. mg2 Pain: Complains of pain in left arm. EENT: No signs and/or symptoms were reported regarding the EENT system. Neuro: Level of Consciousness is awake, alert, obeys commands, Oriented to person, place, time, situation. Cardiovascular: Capillary refill < 3 seconds Patient's skin is warm and dry. Respiratory: Airway is patent Respiratory effort is even, unlabored, Respiratory pattern is regular, symmetrical. GI: No signs and/or symptoms were reported involving the gastrointestinal system. : Derm: Skin superficial lac. Musculoskeletal: Circulation, motion, and sensation intact. Capillary refill < 3 seconds. Injury Description: Laceration sustained to left arm is clean, not bleeding, is bleeding no active bleeding noted. Historical: - Allergies: 07:01 No Known Allergies; mg2 - Home Meds: 07:01 buspirone Oral [Active]; olanzapine oral oral [Active]; mg2 - PMHx: 07:01 adhd; TBI; Bipolar disorder; PTSD; mg2 - PSHx: 07:01 None; mg2 - Immunization history:: Adult Immunizations unknown, Flu vaccine is not up to date. - Social history:: Smoking status: Patient reports the use of cigarette tobacco products, Patient/guardian denies using alcohol, street drugs, Smoking status: Patient reports the use of cigarette tobacco products, smokes two packs cigarettes per day. Screenin:50 Abuse screen: Denies threats or abuse. Nutritional screening: No deficits noted. ea Tuberculosis screening: No symptoms or risk factors identified. Fall Risk IV access (20 points). Assessment: 07:03 General: see triage note. mg2 08:00 Reassessment: Patient appears in no apparent distress at this time. Patient and/or ph family updated on plan of care and expected duration. Pain level reassessed. Patient is alert, oriented x 3, equal unlabored respirations, skin warm/dry/pink. Dr Stuart at bedside to speak w/ pt, pt denies SI or HI at this time, Dr Stuart told pt that if he could get a parent to pick him up he could be d/c home. 09:27 Reassessment: Patient appears in no apparent distress at this time. Patient and/or ph family updated on plan of care and expected duration. Pain level reassessed. Pt asleep w/ equal and unlabored respirations, states that his mother is on the way to get him. Psych: 07:20 [place] Suicide Severity Screening: In the past month, have you wished you were ph or wished you could go to sleep and not wake up? Patient responds "No." "In the past month, have you actually had any thoughts of killing yourself?" Patient responds "no." "In your lifetime, have you ever done anything, started to do anything, or prepared to do anything to end your life?" Patient responds "yes." Patient reports suicidal intent occurred greater than 3 months prior. Subjective: Patient's mood is sad, Delusions are denied, Hallucinations are denied Having thoughts of denies suicidal or homicidal thoughts. Objective: Patient is cooperative, Speech is normal, Affect is appropriate. Interventions: Removed personal items and placed in bag. Patient placed in hospital gown. Suicide Risk Assessment: Sad Person Scale: Sex of patient: Male: Score 1 point. Age of patient: Score 1 point if patient 15-34. Depression: Score 1 point if signs of depression are present. Previous Attempt: Score 0 point if patient has not previously attempted suicide. Substance Abuse: Score 0 point if patient does not abuse alcohol or drugs. Rational Thinking: Score 0 point if patient has rational thinking. Social Support: Score 0 if social support is present/available. Organized Plan: Score 0 if patient did not have an organized plan in place. Relationship: Score 1 point if patient is , , , or for a single male Chronic Sickness: Score 0 point if patient does not have a chronic illness, debilitating, or severe disorder. TOTAL POINTS: If total points are 3-4, proposed clinical action is close follow-up/consider hospitalization. Safety Checks: Personal items have been removed. Door is open. Pt denies substance abuse. Vital Signs: 06:50 BP 133 / 77; Pulse 100; Resp 18; Temp 98.5; Pulse Ox 100% on R/A; Height 5 ft. 8 in. mg2 (172.72 cm); 09:00 BP 123 / 72; Pulse 89; Resp 18; Temp 98.0; Pulse Ox 99% on R/A; ph ED Course: 06:49 Patient arrived in ED. ea 06:50 Inserted saline lock: 20 gauge in right antecubital area, using aseptic technique. ea Blood collected. 06:51 Patient has correct armband on for positive identification. Bed in low position. Call ea light in reach. Side rails up X2. 06:52 Arm band placed on right wrist. Patient placed in an exam room, on a stretcher, on ea pulse oximetry. 06:55 Maykel Tate RN is Primary Nurse. mg2 06:57 Suhas Mills MD is Attending Physician. tw4 07:00 Triage completed. mg2 07:03 No provider procedures requiring assistance completed. mg2 07:09 Primary Nurse role handed off by Maykel Tate RN 07:24 Attending Physician role handed off by Suhas Mills MD cha 07:24 Christopher Stuart MD is Attending Physician. rosalie 07:27 Lianet Davis RN is Primary Nurse. ph 07:43 Wound care: cleaned lacerations to left hand with chlorhexidine and normal saline. dh3 Dressed with Neosporin, non-adherent, and Kerlix. 08:30 Acetaminophen Sent. sv 08:30 Basic Metabolic Panel Sent. sv 08:30 CBC with Diff Sent. sv 09:15 IV discontinued, intact, bleeding controlled, No redness/swelling at site. Pressure ph dressing applied. Administered Medications: No medications were administered Outcome: 09:09 Discharge ordered by . rosalie 10:30 Patient left the ED. ph 10:30 Discharged to home ambulatory, with family. ph 10:30 Condition: good 10:30 Discharge instructions given to patient, Instructed on discharge instructions, follow up and referral plans. Demonstrated understanding of instructions, follow-up care. Signatures: Chantal Silver, Christopher Oliver RN, MD MD cha Hall, Patricia, ANA M RN [facility] [place] [id number] Tasha Gregory RN RN Suhas Mills MD MD [facility] Tami Holloway Maykel Tate, ANA M RN mg2
--- NOTE | 2020-06-11 09:10 | EDPHYS ---
Physician Documentation [facility] Name: Lawrence Antunez III Age: 24 yrs Sex: Male : 1995 Arrival Date: 06/11/2020 Time: 06:49 Bed 7 Private MD: ED Physician Christopher Stuart HPI: 06/11 08:59 This 24 yrs old Male presents to ER via EMS with complaints of Laceration To [facility] Arm. 08:59 The patient has a laceration related to: upset, bipolar. [facility] Historical: - Allergies: 07:01 No Known Allergies; mg2 - Home Meds: 07:01 buspirone Oral [Active]; olanzapine oral oral [Active]; mg2 - PMHx: 07:01 adhd; TBI; Bipolar disorder; PTSD; mg2 - PSHx: 07:01 None; mg2 - Immunization history:: Adult Immunizations unknown, Flu vaccine is not up to date. - Social history:: Smoking status: Patient reports the use of cigarette tobacco products, Patient/guardian denies using alcohol, street drugs, Smoking status: Patient reports the use of cigarette tobacco products, smokes two packs cigarettes per day. ROS: 09:01 Constitutional: Negative for fever, chills, and weight loss, Eyes: Negative for injury, rosalie pain, redness, and discharge, ENT: Negative for injury, pain, and discharge, Neck: Negative for injury, pain, and swelling, Respiratory: Negative for shortness of breath, cough, wheezing, and pleuritic chest pain, Abdomen/GI: Negative for abdominal pain, nausea, vomiting, diarrhea, and constipation, Back: Negative for injury and pain, : Negative for injury, bleeding, discharge, and swelling, MS/Extremity: Negative for injury and deformity, Neuro: Negative for headache, weakness, numbness, tingling, and seizure, Psych: Negative for depression, anxiety, suicide ideation, homicidal ideation, and hallucinations, Allergy/Immunology: Negative for hives, rash, and allergies, Endocrine: Negative for neck swelling, polydipsia, polyuria, polyphagia, and marked weight changes, Hematologic/Lymphatic: Negative for swollen nodes, abnormal bleeding, and unusual bruising. 09:01 Cardiovascular: Negative for chest pain, palpitations, and edema. 09:01 Cardiovascular: 09:01 Skin: Positive for laceration(s), of the dorsal aspect of left forearm. Exam: 09:01 Constitutional: This is a well developed, well nourished patient who is awake, alert, rosalie and in no acute distress. Head/Face: Normocephalic, atraumatic. Eyes: Pupils equal round and reactive to light, extra-ocular motions intact. Lids and lashes normal. Conjunctiva and sclera are non-icteric and not injected. Cornea within normal limits. Periorbital areas with no swelling, redness, or edema. ENT: Nares patent. No nasal discharge, no septal abnormalities noted. Tympanic membranes are normal and external auditory canals are clear. Oropharynx with no redness, swelling, or masses, exudates, or evidence of obstruction, uvula midline. Mucous membranes moist. Neck: Trachea midline, no thyromegaly or masses palpated, and no cervical lymphadenopathy. Supple, full range of motion without nuchal rigidity, or vertebral point tenderness. No Meningismus. Chest/axilla: Normal chest wall appearance and motion. Nontender with no deformity. No lesions are appreciated. Cardiovascular: Regular rate and rhythm with a normal S1 and S2. No gallops, murmurs, or rubs. Normal PMI, no JVD. No pulse deficits. Respiratory: Lungs have equal breath sounds bilaterally, clear to auscultation and percussion. No rales, rhonchi or wheezes noted. No increased work of breathing, no retractions or nasal flaring. Abdomen/GI: Soft, non-tender, with normal bowel sounds. No distension or tympany. No guarding or rebound. No evidence of tenderness throughout. Back: No spinal tenderness. No costovertebral tenderness. Full range of motion. Male : Normal genitalia with no discharge or lesions. MS/ Extremity: Pulses equal, no cyanosis. Neurovascular intact. Full, normal range of motion. Neuro: Awake and alert, GCS 15, oriented to person, place, time, and situation. Cranial nerves II-XII grossly intact. Motor strength 5/5 in all extremities. Sensory grossly intact. Cerebellar exam normal. Normal gait. 09:01 Skin: injury, laceration(s), are not present, the wound is approximately 2 cm(s), with a depth of .25 cm(s), of the dorsal aspect of left forearm. 09:06 ECG was reviewed by the Attending Physician. [facility] Vital Signs: 06:50 BP 133 / 77; Pulse 100; Resp 18; Temp 98.5; Pulse Ox 100% on R/A; Height 5 ft. 8 in. mg2 (172.72 cm); 09:00 BP 123 / 72; Pulse 89; Resp 18; Temp 98.0; Pulse Ox 99% on R/A; ph MDM: 07:24 Patient medically screened. [facility] 09:01 Differential diagnosis: superficial laceration. Data reviewed: vital signs, nurses [facility] notes, lab test result(s), EKG. Data interpreted: threat monitoring analyst: rate is 100 beats/min, rhythm is regular, Pulse oximetry: on room air is 100 %. Test interpretation: by ED physician or midlevel provider: ECG. Counseling: I had a detailed discussion with the patient and/or guardian regarding: the historical points, exam findings, and any diagnostic results supporting the discharge/admit diagnosis, lab results, the need for outpatient follow up, for definitive care, a psychiatrist. 09:10 ED course: not suicidal, not homicidal, wants to go home, will follow up. [facility] 06/11 06:50 Order name: Acetaminophen 06/11 06:50 Order name: Basic Metabolic Panel 06/11 06:50 Order name: CBC with Diff 06/11 06:50 Order name: ETOH Level 06/11 06:50 Order name: Hepatic Function 06/11 06:50 Order name: PT-INR 06/11 06:50 Order name: Ptt, Activated 06/11 06:50 Order name: Salicylate 06/11 06:51 Order name: Acetaminophen Level [facility] 06/11 06:51 Order name: Basic Metabolic Panel [facility] 06/11 06:51 Order name: CBC with Automated Diff [facility] 06/11 10:20 Order name: SARS-COV-2 RT PCR [facility] 06/11 06:50 Order name: EKG; Complete Time: 06:51 06/11 06:50 Order name: EKG - Nurse/Tech; Complete Time: 07:28 06/11 06:50 Order name: IV Saline Lock; Complete Time: 07:28 06/11 06:50 Order name: Labs collected and sent; Complete Time: 07:28 06/11 07:13 Order name: Diet Finger Food; Complete Time: 07:14 dh3 EC:06 Rate is 98 beats/min. Rhythm is regular. QRS [place] is Normal. TN interval is normal. QRS rosalie interval is normal. QT interval is normal. No Q waves. T waves are Normal. No ST changes noted. Clinical impression: NSR w/ Non-specific ST/T Changes and No evidence of ischemia. Interpreted by me. Reviewed by me. Administered Medications: No medications were administered Disposition: 06/11/20 09:09 Discharged to Home. Impression: Laceration without foreign body of left forearm, Bipolar disorder. - Condition is Stable. - Discharge Instructions: Laceration Care, Adult, Bipolar Disorder, Suicidal Feelings: How to Help Yourself, Helping Someone Who is Suicidal, Laceration Care, Adult, [id number]. - Medication Reconciliation Form, Thank You Letter, Antibiotic Education, Prescription Opioid Use form. - Follow up: Private Physician; When: 2 - 3 days; Reason: Recheck today's complaints, Continuance of care, Re-evaluation by your physician. - Problem is new. - Symptoms have improved. Signatures: Dispatcher [employer] [facility] Christopher Stuart MD MD cha Hall, Patricia, RN RN ph Tasha Gregory, ANA M RN Maykel Peres, RN RN mg2 Corrections: (The following items were deleted from the chart) 09:34 07:01 CORONAVIRUS+ ordered. [facility] 10:30 09:09 06/11/2020 09:09 Discharged to Home. Impression: Laceration without foreign body ph of left forearm; Bipolar disorder. Condition is Stable. Forms are Medication Reconciliation Form, Thank You Letter, Antibiotic Education, Prescription Opioid Use. Follow up: Private Physician; When: 2 - 3 days; Reason: Recheck today's complaints, Continuance of care, Re-evaluation by your physician. Problem is new. Symptoms have improved. rosalie
[2020-06-11 10:40] VITALS: BP 133/77; TEMP 98.5; O2SAT 100
--- NOTE | 2020-06-13 13:16 | EKG ---
Test Date: 2020-06-11 Test Time: 06:54:20 Associate Automation Engineer: LD MEASUREMENT RESULTS: Intervals: Rate: 98 IN: 154 QRSD: 82 QT: 358 QTc: 457 [place]: P: 75 IN: 154 QRS: 94 T: 52 INTERPRETIVE STATEMENTS: Normal sinus rhythm Rightward axis Borderline ECG Compared to ECG 10/15/2013 13:24:16 Right-axis deviation now present Sinus bradycardia no longer present Sinus arrhythmia no longer present Electronically Signed On 06-13-20 13:12:48 CONGRESSIONAL ASSISTANT by Rey Easley
== END 2020-06-11 10:30 | disposition home or self-care (01) ==
LOC: ER 06:49
DX: S51.812A Laceration without foreign body of left forearm, initial encounter (principal); F31.9 Bipolar disorder, unspecified; F17.210 Nicotine dependence, cigarettes, uncomplicated; Z20.822 Contact with and (suspected) exposure to COVID-19; Z87.820 Personal history of traumatic brain injury
CPT/HCPCS: 36415; 80048; 80076; 80320; 80329; 85025; 85610; 85730; 93005; 99284; U0003

== ENCOUNTER 2020-09-02 00:33 | Emergency (ER) | payer SELFPAY ==
[2020-09-02 02:48] LABS: Absolute Lymphocytes (CBC) 2.4 K/uL (0.7-4.9); Basophils % 0.5 % (0-1.3); Hematocrit 37.1 % (39.6-49.0); Lymphocytes % 33.9 % (15.3-44.8); MPV 9.8 fL (7.6-11.3); RBC Red Blood Cell Count 4.38 M/uL (4.33-5.43)
[2020-09-02 02:56] LABS: ALT/SGPT 26 U/L (12-78); AST/SGOT 22 U/L (15-37); Albumin 3.2 g/dL (3.4-5.0); Alkaline Phosphatase 61 U/L (45-117); BUN Blood Urea Nitrogen 11 mg/dL (7-18); Bicarbonate 31 mmol/L (21-32); Bilirubin Direct < 0.1 mg/dL (0-0.2); Bilirubin Total 0.2 mg/dL (0.2-1.0); Glucose Level 125 mg/dL (74-106); Lipase 51 U/L (73-393); Potassium 3.5 mmol/L (3.5-5.1); Protein, Total 7.5 g/dL (6.4-8.2); Sodium Level 138 mmol/L (136-145)
[2020-09-02] MEDS ORDERED: NA CHLORIDE 0.9% 1,000 ML ONE (03:09)
[2020-09-02] MEDS ORDERED: FAMOTIDINE 20 MG/2 ML VIAL IV ONE (03:09)
[2020-09-02 03:56] LABS: Urine Blood Negative (Negative); Urine Glucose Negative (Negative); Urine Protein Negative (Negative); Urine Specific Gravity >=1.030 (1.005-1.030); Urine pH 6.5 (5.0-7.0)
--- NOTE | 2020-09-02 04:10 | EDPHYS ---
Physician Documentation [facility] Name: Lawrence Antunez III Age: 25 yrs Sex: Male : 1995 Arrival Date: 09/02/2020 Time: 00:34 Bed 28 Private MD: ED Physician Rodrigo Valenzuela HPI: 09/02 01:46 This 25 yrs old Male presents to ER via Ambulatory with complaints of mh7 Abdominal Pain, Dizziness. 01:46 The patient presents with abdominal pain in the lower abdomen. Onset: The mh7 symptoms/episode began/occurred 2 day(s) ago. The symptoms do not radiate. Associated signs and symptoms: Pertinent positives: diarrhea, nausea, Pertinent negatives: anorexia, blood in stools, chest pain, constipation, dysuria, fever, headache, hematuria, palpitations, shortness of breath, testicular pain, vomiting, vomiting blood. The symptoms are described as intermittent, vague, waxing/waning. Modifying factors: The symptoms are alleviated by nothing, the symptoms are aggravated by nothing. Severity of pain: At its worst the pain was moderate yesterday, in the emergency department the pain has improved moderately. Historical: - Allergies: 00:51 No Known Allergies; iw - Home Meds: 00:51 None [Active]; iw - PMHx: 00:51 adhd; Bipolar disorder; PTSD; TBI; iw - PSHx: 00:51 None; iw - Immunization history:: Adult Immunizations up to date. - Social history:: Smoking status: Patient reports the use of cigarette tobacco products, smokes one pack cigarettes per day. ROS: 01:46 Constitutional: Negative for fever, chills, and weight loss, Eyes: Negative for injury, mh7 pain, redness, and discharge, ENT: Negative for injury, pain, and discharge, Neck: Negative for injury, pain, and swelling, Cardiovascular: Negative for chest pain, palpitations, and edema, Respiratory: Negative for shortness of breath, cough, wheezing, and pleuritic chest pain, Back: Negative for injury and pain, : Negative for injury, bleeding, discharge, and swelling, MS/Extremity: Negative for injury and deformity, Skin: Negative for injury, rash, and discoloration, Neuro: Negative for headache, weakness, numbness, tingling, and seizure, Psych: Negative for depression, anxiety, suicide ideation, homicidal ideation, and hallucinations, Allergy/Immunology: Negative for hives, rash, and allergies, Endocrine: Negative for neck swelling, polydipsia, polyuria, polyphagia, and marked weight changes, Hematologic/Lymphatic: Negative for swollen nodes, abnormal bleeding, and unusual bruising. Exam: 01:46 Constitutional: This is a well developed, well nourished patient who is awake, alert, mh7 and in no acute distress. Head/Face: Normocephalic, atraumatic. Eyes: Pupils equal round and reactive to light, extra-ocular motions intact. Lids and lashes normal. Conjunctiva and sclera are non-icteric and not injected. Cornea within normal limits. Periorbital areas with no swelling, redness, or edema. Neck: Trachea midline, no thyromegaly or masses palpated, and no cervical lymphadenopathy. Supple, full range of motion without nuchal rigidity, or vertebral point tenderness. No Meningismus. Chest/axilla: Normal chest wall appearance and motion. Nontender with no deformity. No lesions are appreciated. Cardiovascular: Regular rate and rhythm with a normal S1 and S2. No gallops, murmurs, or rubs. Normal PMI, no JVD. No pulse deficits. Respiratory: Lungs have equal breath sounds bilaterally, clear to auscultation and percussion. No rales, rhonchi or wheezes noted. No increased work of breathing, no retractions or nasal flaring. 01:46 Back: No spinal tenderness. No costovertebral tenderness. Full range of motion. Skin: Warm, dry with normal turgor. Normal color with no rashes, no lesions, and no evidence of cellulitis. MS/ Extremity: Pulses equal, no cyanosis. Neurovascular intact. Full, normal range of motion. Neuro: Awake and alert, GCS 15, oriented to person, place, time, and situation. Cranial nerves II-XII grossly intact. Motor strength 5/5 in all extremities. Sensory grossly intact. Cerebellar exam normal. Normal gait. Psych: Awake, alert, with orientation to person, place and time. Behavior, mood, and affect are within normal limits. 01:46 Abdomen/GI: Inspection: abdomen appears normal, Bowel sounds: normal, in all quadrants, Palpation: moderate abdominal tenderness, in the right lower quadrant and left lower quadrant, mass, is not appreciated, rebound tenderness, is not appreciated, voluntary guarding, is not appreciated, involuntary guarding, is not appreciated, no appreciated organomegaly, Rectal exam: the exam is deferred, because of patient request, Indicators: McBurney's point is not tender, Jade's sign is negative, Rovsing's sign is negative, Obturator sign is negative, Psoas sign is negative, Liver: no appreciated palpable abnormalities, Hernia: not appreciated. Vital Signs: 00:48 BP 119 / 67; Pulse 87; Resp 16; Pulse Ox 100% on R/A; Weight 65.77 kg; Height 5 ft. 9 iw in. (175.26 cm); Pain 6/10; 00:48 Body Mass Index 21.41 (65.77 kg, 175.26 cm) iw MDM: 04:06 Differential diagnosis: appendicitis, bowel obstruction, diverticulitis, gastritis, 7 non-specific abd pain, pancreatitis, Peptic Ulcer Disease, Ureterolithiasis, urinary tract infection, Gastroenteritis. Data reviewed: vital signs, nurses notes. 04:07 Data reviewed: lab test result(s), CBC, electrolytes, urinalysis. Data interpreted: [facility] Pulse oximetry: on room air is 100 %. Interpretation: normal. Refusal of service: The patient/guardian displays adequate decision making capability and despite a detailed discussion of alternatives, benefits, risks, and consequences refuses: left AMA prior to CT Abdomen/pelvis results. 04:09 Patient medically screened. [facility] 09/02 01:38 Order name: Basic Metabolic Panel; Complete Time: 03:32 [facility] 09/02 01:38 Order name: CBC with Diff; Complete Time: 03:32 [facility] 09/02 01:38 Order name: Hepatic Function; Complete Time: 03:32 [facility] 09/02 01:38 Order name: Lipase; Complete Time: 03:32 [facility] 09/02 01:40 Order name: CT Abd/Pelvis - IV Contrast Only [facility] 09/02 03:56 Order name: Urine Dipstick-Ancillary; Complete Time: 04:06 [facility] 09/02 01:38 Order name: IV Saline Lock; Complete Time: 02:26 [facility] 09/02 01:38 Order name: Labs collected and sent; Complete Time: 02: [facility] 09/02 01:38 Order name: Urine Dipstick-Ancillary (obtain specimen); Complete Time: 04:31 7 Administered Medications: 02:53 Drug: Pepcid (famotidine) 20 mg Route: IVP; Site: right antecubital; iw 03:30 Follow up: Response: No adverse reaction iw 02:53 Not Given (Patient Refused): morphine 2 mg IVP once; (PAIN>8) RASS on ADMN: Combtv4, iw Very Agttd3, Agttd2, Rstlss1, AlertClm0, Drwsy-1, LtSdtn-2, ModSdtn-3, DpSdtn-4, UnArsble-5 x2 02:54 Drug: NS 0.9% 1000 ml Route: IV; Rate: 1000 ml; Site: right antecubital; iw 03:03 Not Given (Patient Refused): Zofran (Ondansetron) 4 mg IVP once; over 2 minutes iw Disposition: 09/02/20 04:09 Patient has left against medical advice. Impression: Lower abdominal pain, unspecified, Diarrhea, unspecified. - Patients states they are going to Home. - Condition is Stable. - Discharge Instructions: Diarrhea, Adult, Abdominal Pain, Adult, [id number]. Follow up: Private Physician; When: 1 - 2 days; Reason: Worsening of condition, Recheck today's complaints, Continuance of care, Re-evaluation by your physician. - Problem is new. - Symptoms are unchanged. Signatures: Dispatcher [employer] Loren Bynum RN RN Elena Putnam RN RN cr4 Rodrigo Valenzuela MD MD 7 Corrections: (The following items were deleted from the chart) 04:16 04:09 09/02/2020 04:09 Patients has left against medical advice. Impression: Lower cr4 abdominal pain, unspecified; Diarrhea, unspecified. Patient states they are going to Home. Condition is Stable. Follow up: Private Physician; When: 1 - 2 days; Reason: Worsening of condition, Recheck today's complaints, Continuance of care, Re-evaluation by your physician. Problem is new. Symptoms are unchanged. 7
--- NOTE | 2020-09-02 04:10 | ER ---
Nurse's Notes [facility] Name: Lawrence Antunez III Age: 25 yrs Sex: Male : 1995 Arrival Date: 09/02/2020 Time: 00:34 Bed 28 Private MD: Diagnosis: Lower abdominal pain, unspecified;Diarrhea, unspecified Presentation: 09/02 00:48 Chief complaint: Patient states: had a really bad pain in his stomach and just wasn't iw feeling good since yesterday, +diarrhea since yesterday, no vomiting. Coronavirus screen: diarrhea. Ebola Screen: Patient negative for fever greater than or equal to 101.5 degrees Fahrenheit, and additional compatible Ebola Virus Disease symptoms Patient denies exposure to infectious person. Patient denies travel to an Ebola-affected area in the 21 days before illness onset. No symptoms or risks identified at this time. Initial Sepsis Screen: Does the patient meet any 2 criteria? No. Patient's initial sepsis screen is negative. Does the patient have a suspected source of infection? No. Patient's initial sepsis screen is negative. Risk Assessment: Do you want to hurt yourself or someone else? Patient reports no desire to harm self or others. Onset of symptoms was September 01, 2020. 00:48 Method Of Arrival: Ambulatory iw 00:48 Acuity: NORI 3 iw Historical: - Allergies: 00:51 No Known Allergies; iw - Home Meds: 00:51 None [Active]; iw - PMHx: 00:51 adhd; Bipolar disorder; PTSD; TBI; iw - PSHx: 00:51 None; iw - Immunization history:: Adult Immunizations up to date. - Social history:: Smoking status: Patient reports the use of cigarette tobacco products, smokes one pack cigarettes per day. Screenin:29 Abuse screen: Denies threats or abuse. Denies injuries from another. Nutritional iw screening: No deficits noted. Tuberculosis screening: No symptoms or risk factors identified. Fall Risk None identified. Assessment: 01:43 General: Appears in no apparent distress. comfortable, Behavior is calm, cooperative. iw Pain: Complains of pain in left lower quadrant and right lower quadrant. Neuro: Level of Consciousness is awake, alert, obeys commands, Oriented to person, place, time, situation, Moves all extremities. Full function. Respiratory: Respiratory effort is even, unlabored, Respiratory pattern is regular, symmetrical. GI: Bowel sounds present X 4 quads. Abd is soft X 4 quads Reports lower abdominal pain, diarrhea. Derm: Skin is intact, is healthy with good turgor, Skin is. Musculoskeletal: No deficits noted. Range of motion: limited in all extremities. 02:29 Reassessment: Patient appears in no apparent distress at this time. Patient and/or iw family updated on plan of care and expected duration. Pain level reassessed. Patient is alert, oriented x 3, equal unlabored respirations, skin warm/dry/pink. Vital Signs: 00:48 BP 119 / 67; Pulse 87; Resp 16; Pulse Ox 100% on R/A; Weight 65.77 kg; Height 5 ft. 9 iw in. (175.26 cm); Pain 6/10; 00:48 Body Mass Index 21.41 (65.77 kg, 175.26 cm) iw ED Course: 00:34 Patient arrived in ED. am4 00:50 Triage completed. iw 00:51 Arm band placed on. iw 01:33 Rodrigo Valenzuela MD is Attending Physician. [facility] 02:26 Loren Burkett, RN is Primary Nurse. iw 02:29 Initial lab(s) drawn, by me, sent to lab. Inserted saline lock: 20 gauge in right iw antecubital area, using aseptic technique. Blood collected. 03:00 No provider procedures requiring assistance completed. cr4 03:53 CT Abd/Pelvis - IV Contrast Only In Process Unspecified. EDMS Administered Medications: 02:53 Drug: Pepcid (famotidine) 20 mg Route: IVP; Site: right antecubital; iw 03:30 Follow up: Response: No adverse reaction iw 02:53 Not Given (Patient Refused): morphine 2 mg IVP once; (PAIN>8) RASS on ADMN: Combtv4, iw Very Agttd3, Agttd2, Rstlss1, AlertClm0, Drwsy-1, LtSdtn-2, ModSdtn-3, DpSdtn-4, UnArsble-5 x2 02:54 Drug: NS 0.9% 1000 ml Route: IV; Rate: 1000 ml; Site: right antecubital; iw 03:03 Not Given (Patient Refused): Zofran (Ondansetron) 4 mg IVP once; over 2 minutes iw Outcome: 04:15 AMA AMA form signed iw 04:15 Condition: good 04:16 Patient left the ED. cr4 Signatures: Dispatcher [employer] Loren Bynum RN RN iw Elena Putnam RN RN cr4 Rodrigo Valenzuela MD MD 7 Shanice Banks am4 Corrections: (The following items were deleted from the chart) 00:50 00:48 BP 196 / 7; Pulse 87bpm; Resp 16bpm; Pulse Ox 100% RA; 65.77 kg; Height 5 ft. 9 iw in.; BMI: 21.4; Pain 6/10; iw
[2020-09-02 04:25] VITALS: BP 119/67; O2SAT 100
--- NOTE | 2020-09-03 09:00 | RAD REPORT ---
EXAM DESCRIPTION: CT - Abdomen Pelvis W Contrast - 09/02/2020 6:17 am CLINICAL HISTORY: The patient is 25 years old and is Male; ABD PAIN TECHNIQUE: Axial computed tomography images of the abdomen and pelvis with intravenous contrast. S agittal and coronal reformatted images were created and reviewed. This CT exam was performed using one or more of the following dose reduction techniques: automated exposure control, adjustment of t he mA and/or kV according to patient size, and/or use of iterative reconstruction technique. COMPARISON: No relevant prior studies available. FINDINGS: Lung bases: Unremarkable. No mass. No consolidation. ABDOMEN: Liver: Unremarkable. No mass. Gallbladder and bile ducts: Contracted gallbladder without calcified stones. No ductal dilation. Pancreas: No findings to suggest acute pancreatitis. No mass visualized. No ductal dilation. Spleen: Unremarkable. No splenomegaly. Adrenals: Unremarkable. No mass. Kidneys and ureters: Unremarkable. No solid mass. No hydronephrosis. Stomach and bowel: No bowel dilatation or obstruction. No bowel wall thickening. PELVIS: Appendix: The visualized appendix is normal. No pericecal inflammation to suggest acute appendici tis. Bladder: Unremarkable. No mass. Reproductive: Unremarkable as visualized. ABDOMEN and PELVIS: Intraperitoneal space: Unremarkable. No free air. No significant fluid collection. Bones/joints: No acute fracture. No dislocation. Soft tissues: Subcutaneous edema in the region of the lateral left hip. Vasculature: Unremarkable. No abdominal aortic aneurysm. Lymph nodes: No pathologically enlarged lymph nodes. IMPRESSION: 1. No acute obstructive or inflammatory process identified. Normal appendix. 2. Subcutaneous edema in the lateral left hip region. Clinical correlation suggested. Electronically signed by: Chantal Shaikh MD 09/02/2020 4:04 AM CDT Due to temporary technical issues with the PACS/Fluency reporting system, reports are being signed by the in house radiologists without review as a courtesy to insure prompt reporting. The interpreting radiologist is fully responsible for the content of the report.
== END 2020-09-02 04:16 | disposition left against medical advice (07) ==
LOC: ER 00:33
DX: R19.7 Diarrhea, unspecified (principal); F17.210 Nicotine dependence, cigarettes, uncomplicated
CPT/HCPCS: 36415; 74177; 80048; 80076; 81003; 83690; 85025; 96374; 99284; J7030; Q9967

== ENCOUNTER 2021-01-01 06:48 | Emergency (ER) | payer SELFPAY ==
[2021-01-01 07:58] LABS: Urine Blood 3+ (Negative); Urine Glucose 1+ (Negative); Urine Protein 3+ (Negative); Urine Specific Gravity <=1.005 (1.005-1.030); Urine pH >=9.0 (5.0-7.0)
[2021-01-01 08:18] LABS: Absolute Lymphocytes (CBC) 1.4 K/uL (0.7-4.9); Basophils % 0.4 % (0-1.3); Hematocrit 30.9 % (39.6-49.0); Lymphocytes % 14.8 % (15.3-44.8); MPV 8.7 fL (7.6-11.3); RBC Red Blood Cell Count 3.57 M/uL (4.33-5.43)
[2021-01-01 08:34] LABS: ALT/SGPT 33 U/L (12-78); AST/SGOT 28 U/L (15-37); Albumin 3.8 g/dL (3.4-5.0); Alkaline Phosphatase 93 U/L (45-117); BUN Blood Urea Nitrogen 15 mg/dL (7-18); Bicarbonate 29 mmol/L (21-32); Bilirubin Direct 0.2 mg/dL (0-0.2); Bilirubin Total 0.7 mg/dL (0.2-1.0); Creatine Phosphokinase 49 U/L (39-308); Glucose Level 114 mg/dL (74-106); Potassium 4.6 mmol/L (3.5-5.1); Sodium Level 136 mmol/L (136-145)
[2021-01-01] MEDS ORDERED: ONDANSETRON 4 MG/2 ML VIAL ONE (08:37)
[2021-01-01] MEDS ORDERED: MORPHINE 4 MG/ML SYR ONE (08:37)
[2021-01-01] MEDS ORDERED: NA CHLORIDE 0.9% 1,000 ML ONE (08:37)
--- NOTE | 2021-01-01 08:55 | RAD REPORT ---
EXAM DESCRIPTION: CTAbdomen Pelvis W Contrast - 01/01/2021 8:37 am CLINICAL HISTORY: . HEMATURIA COMPARISON: Abdomen Pelvis W Contrast dated 09/02/2020; CT ABD PELVIS W CONTRAST dated 01/18/2015 TECHNIQUE: Biphasic CT imaging of the abdomen and pelvis was performed with 100 ml non-ionic IV cont rast. All CT scans are performed using dose optimization technique as appropriate and may include automated exposure control or mA/KV adjustment according to patient size. FINDINGS: Lower chest: No acute abnormality. Liver: No acute abnormality or suspicious lesions. Biliary: No biliary ductal dilatation. Stomach: No significant focal abnormality. Duodenum: No significant focal abnormality. Pancreas: No significant abnormality. Spleen: No significant abnormality. Adrenal: No suspicious lesions. Kidney/ureter: No hydronephrosis. No renal calculi. Retroperitoneum: Extraperitoneal hematoma in the pelvis measuring 10.1 x 8 centimeters. Vascular: No aneurysm. Bowel: No significant focal abnormality. Peritoneum: Small volume of free fluid. Bladder: There is mass effect on the bladder. Reproductive: No adnexal masses. Bones: No acute fracture. Other: Shrapnel is present in the perineum. IMPRESSION: Large extraperitoneal hematoma in the pelvis along the right pelvic sidewall. There is m ass effect on the bladder. Small volume of abdominal free fluid may be related to recent exploratory laparotomy.
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
[2021-01-01 17:12] VITALS: BP 108/60; TEMP 98.7; O2SAT 100
== END 2021-01-01 12:53 | disposition left against medical advice (07) ==
LOC: ER 06:48
DX: S30.0XXA Contusion of lower back and pelvis, initial encounter (principal); R00.0 Tachycardia, unspecified; F17.210 Nicotine dependence, cigarettes, uncomplicated
CPT/HCPCS: 36415; 74177; 80048; 80076; 81003; 82550; 85025; 96374; 96375; 99283; J2405; J7030; Q9967

== ENCOUNTER 2021-06-26 17:19 | Emergency (ER) | payer SELFPAY ==
--- OUTSIDE RECORDS SUMMARY | 2021-06-26 17:21 | XMS REPORT | Continuity of Care Document ---
:1995 Author Organization [facility] t Address [address] [place] [address] Care Team Providers Name Role Phone STEVE Attending Clinician Unavailable Problems This patient has no known problems. Allergies, Adverse Reactions, Alerts This patient has no known allergies or adverse reactions. Medications This patient has no known medications. Procedures This patient has no known procedures. Encounters Start End Encounter Admission Attending Care Care Encounter Source Date/Time Date/Time Type Type Clinicians Facility Department ID 2021-03-23 Outpatient STEVE [facility] [id number] 3 [place] 01:03:37 [facility] Results This patient has no known results.
[2021-06-26] MEDS ORDERED: MORPHINE 2 MG/ML SYR ONE (18:07)
[2021-06-26] MEDS ORDERED: ONDANSETRON 4 MG/2 ML VIAL ONE (18:07)
[2021-06-26] MEDS ORDERED: NA CHLORIDE 0.9% 1,000 ML ONE (18:07)
[2021-06-26 18:22] LABS: Urine Blood Negative (Negative); Urine Glucose Negative (Negative); Urine Protein Negative (Negative); Urine Specific Gravity 1.015 (1.005-1.030)
[2021-06-26 18:28] LABS: Absolute Lymphocytes (CBC) 2.1 K/uL (0.7-4.9); Lymphocytes % 30.1 % (15.3-44.8); MPV 9.5 fL (7.6-11.3); RBC Red Blood Cell Count 4.84 M/uL (4.33-5.43)
[2021-06-26 18:33] LABS: Urine Bacteria <20 /HPF (NONE SEEN); Urine RBC NONE SEEN /HPF (NONE SEEN)
[2021-06-26 19:08] LABS: ALT/SGPT 84 U/L (12-78); AST/SGOT 30 U/L (15-37); Albumin 3.5 g/dL (3.4-5.0); Alkaline Phosphatase 96 U/L (45-117); BUN Blood Urea Nitrogen 8 mg/dL (7-18); Bicarbonate 28 mmol/L (21-32); Bilirubin Total 0.2 mg/dL (0.2-1.0); Creatine Phosphokinase 155 U/L (39-308); Glucose Level 91 mg/dL (74-106); Lipase 55 U/L (73-393); Potassium 4.7 mmol/L (3.5-5.1); Protein, Total 7.7 g/dL (6.4-8.2); Sodium Level 135 mmol/L (136-145)
[2021-06-26 19:16] LABS: Bilirubin Direct < 0.1 mg/dL (0-0.2)
--- NOTE | 2021-06-26 19:58 | RAD REPORT ---
EXAM DESCRIPTION: CT - Abdomen Pelvis W Contrast - 06/26/2021 7:43 pm CLINICAL HISTORY: Abdominal pain COMPARISON: 2020 TECHNIQUE: Computed axial tomography of the abdomen pelvis was obtained. 100 cc Isovue-300 was admin istered intravenously. Oral contrast was not requested which limits evaluation of bowel and appendix All CT scans are performed using dose optimization technique as appropriate and may include automated exposure control or mA/KV adjustment according to patient size. FINDINGS: Some of the images are degraded by motion artifact The liver, spleen, pancreas, adrenal and kidneys appear unremarkable. There is no evidence of diverticulitis. 5 centimeter low-density fluid collection abutting the right pelvic sidewall and bladder has decrease d in size and represents a late subacute hematoma. IMPRESSION: Pelvic hematoma described on the prior exam has decreased in size. It measures 5 centime ters and has a low density.
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
[2021-06-26 20:58] VITALS: TEMP 98.9
[2021-06-26 21:00] VITALS: BP 112/68; O2SAT 100
== END 2021-06-26 20:36 | disposition home or self-care (01) ==
LOC: ER 17:19
DX: S30.1XXA Contusion of abdominal wall, initial encounter (principal); R31.9 Hematuria, unspecified; F31.9 Bipolar disorder, unspecified; Z72.0 Tobacco use
CPT/HCPCS: 36415; 74177; 80048; 80076; 81003; 81015; 82550; 83690; 85025; 96374; 96375; 99284; J2270; J2405; J7030; Q9967

== ENCOUNTER 2021-08-18 09:37 | Emergency (ER) | payer SELFPAY ==
--- OUTSIDE RECORDS SUMMARY | 2021-08-18 09:39 | XMS REPORT | Continuity of Care Document ---
:1995 Author Organization [facility] t Address [address] [place] [address] Care Team Providers Name Role Phone STEVE [...] Department ID 2021-03-23 Outpatient STEVE [facility] [id number] [place] 01:03:37 [facility] Results This patient has no known results.
[2021-08-18] MEDS ORDERED: HYDROCODONE/APAP 10/325 TAB ONE (10:36)
[2021-08-18] MEDS ORDERED: CLINDAMYCIN IV 150 MG/ML (4 mL) VIAL ONE (10:36)
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
[2021-08-18 10:53] VITALS: TEMP 97.4
[2021-08-18 10:56] VITALS: BP 151/73; O2SAT 98
== END 2021-08-18 10:48 | disposition home or self-care (01) ==
LOC: ER 09:37
DX: K04.7 Periapical abscess without sinus (principal); K02.7 Dental root caries; K02.9 Dental caries, unspecified; Z72.0 Tobacco use
CPT/HCPCS: 96372; 99283; S0077

== ENCOUNTER 2022-07-17 12:40 | Emergency (ER) | payer SELFPAY ==
[2022-07-17 13:39] LABS: Specific Gravity 1.014 (1.005-1.030); Urine Bilirubin NEGATIVE (Negative); Urine Blood Negative (Negative); Urine Clarity Clear (Clear); Urine Color Light-Yellow (Yellow); Urine Glucose NEGATIVE (Negative); Urine Protein NEGATIVE (Negative); Urine Urobilinogen Normal (Normal); Urine pH 5.5 (5.0-7.0)
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
[2022-07-17 17:27] VITALS: BP 113/68; TEMP 98; O2SAT 98
== END 2022-07-17 16:30 | disposition home or self-care (01) ==
LOC: ER 12:40
DX: Z71.1 Person with feared health complaint in whom no diagnosis is made (principal)
CPT/HCPCS: 81003; 99281

== ENCOUNTER 2022-12-23 15:32 | Emergency (ER) | payer SELFPAY ==
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
[2022-12-23 16:42] VITALS: BP 134/60; TEMP 97.9; O2SAT 99
== END 2022-12-23 16:02 | disposition home or self-care (01) ==
LOC: ER 15:32
PROC: 09C0XZZ Extirpation of Matter from Right External Ear, External Approach (ICD-10-PCS; principal; 2022-12-23)
DX: T16.1XXA Foreign body in right ear, initial encounter (principal); F17.210 Nicotine dependence, cigarettes, uncomplicated
CPT/HCPCS: 99283

== ENCOUNTER 2023-02-27 16:13 | Emergency (ER) | payer SELFPAY ==
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
[2023-02-27 16:32] VITALS: BP 129/74; TEMP 97.7; O2SAT 99
== END 2023-02-27 16:26 | disposition home or self-care (01) ==
LOC: ER 16:13
DX: K04.7 Periapical abscess without sinus (principal)
CPT/HCPCS: 99283

== ENCOUNTER 2023-09-09 14:50 | Emergency (ER) | payer SELFPAY ==
[2023-09-09] MEDS ORDERED: KETOROLAC 30 MG/ML INJ ONE (15:05)
[2023-09-09] MEDS ORDERED: GABAPENTIN 300 MG CAP ONE (15:05)
--- NOTE | 2023-09-09 15:55 | RAD REPORT ---
EXAM DESCRIPTION: RAD - Lumbar Spine 3 Views - 09/09/2023 3:48 pm CLINICAL HISTORY: PAIN COMPARISON: No comparisons FINDINGS/IMPRESSION: No acute fracture. No malalignment. No significant focal degenerative changes.
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
[2023-09-09 16:42] VITALS: BP 123/62; TEMP 97.5; O2SAT 99
== END 2023-09-09 16:13 | disposition home or self-care (01) ==
LOC: ER 14:50
DX: S39.012A Strain of muscle, fascia and tendon of lower back, initial encounter (principal)
CPT/HCPCS: 72100; 96372; 99284

== ENCOUNTER 2024-02-03 23:02 | Emergency (ER) | payer SELFPAY ==
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
[2024-02-03] MEDS ORDERED: AMOX/K CLAV 875 MG TAB ONE (23:24)
[2024-02-03] MEDS ORDERED: KETOROLAC 30 MG/ML INJ ONE (23:25)
[2024-02-04 00:44] VITALS: O2SAT 100
[2024-02-04 00:45] VITALS: TEMP 98.2
[2024-02-04 00:47] VITALS: BP 117/60
== END 2024-02-03 23:47 | disposition home or self-care (01) ==
LOC: ER 23:02
DX: K08.89 Other specified disorders of teeth and supporting structures (principal); F17.210 Nicotine dependence, cigarettes, uncomplicated
CPT/HCPCS: 96372; 99284

== ENCOUNTER 2024-08-12 18:57 | Emergency (ER) | payer SELFPAY ==
--- OUTSIDE RECORDS SUMMARY | 2024-08-12 19:00 | XMS REPORT | Continuity of Care Document ---
Author Name Unknown Address [address] [address] [place] [address] Organization [facility] Address [address] [facility] 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 Name Role Phone Scott Umanzor Primary Care Physician Vital Signs Vital Name Observation Time Observation Value Comments S ource Height Measured 2024-02-07 16:35:00 65.00 inches Amado León Body Temperature 2024-02-07 16:35:00 98.30 degrees mAado León Heart Rate 2024-02-07 16:35:00 69.00 /min Fifi en F Mau Respiratory Rate 2024-02-07 16:35:00 18.00 /min Amado Sherrill León BP Systolic 2024-02-07 16:35:00 119 mm[Hg] Step hen F Mau BP Diastolic 2024-02-07 16:35:00 75 mm[Hg] Ananda phen Sherrill León Weight Measured 2024-02-07 16:35:00 173.90 pounds Amado León Encounters Start Date/Time End Date/Time Encounter Type Admission Type Attending [facility] Care Department Encounter ID Source 2024-02-07 16:28:45 2024-02-07 16:28:45 Outpatient [facility] [id number] Amado Mccartney Mau 2024-02-07 00:00:00 2024-02-07 00:00:00 Outpatient Visit [facility] [id number] Amado León Notes Date/Time Note Provider Source Amado Sherrill. [facility]
--- NOTE | 2024-08-12 20:03 | RAD REPORT ---
Procedure: Chest Pa And Lat (2 Views) HISTORY: Hemoptysis COMPARISON: none FINDINGS: The lungs appear clear of acute infiltrate. No significant pleural effusion noted. The heart is normal size. IMPRESSION: No acute abnormality is displayed.
[2024-08-12] MEDS ORDERED: IPRATROPIUM BROM 0.5MG/2.5ML ONE (20:07)
[2024-08-12] MEDS ORDERED: ALBUTEROL 2.5 MG/3 ML NEB SOL ONE (20:07)
[2024-08-12] MEDS ORDERED: NA CHLORIDE 0.9% 1,000 ML ONE (20:08)
[2024-08-12] MEDS ORDERED: KETOROLAC 30 MG/ML INJ ONE (20:08)
[2024-08-12 20:18] LABS: Absolute Eosinophils 0.1 K/uL (0-0.5); Absolute Lymphocytes (CBC) 2.1 K/uL (0.7-4.9); Absolute Monocytes 0.5 K/uL (0.1-1.3); Absolute Neutrophil 3.5 K/uL (1.8-8.0); Basophils % 0.3 % (0-1.3); Eosinophils % 2.2 % (0-4.4); Hematocrit 35.7 % (39.6-49.0); Hemoglobin 12.4 g/dL (13.6-17.9); Lymphocytes % 34.3 % (15.3-44.8); MCH 30.5 pg (27.0-35.0); MCHC 34.8 g/dL (32.0-36.0); MCV 87.6 fL (80-100); MPV 9.4 fL (7.6-11.3); Monocytes % 7.2 % (3.3-12.3); Nucleated Red Blood Cells % 0.1 % (0-0); Platelets 148 thou/uL (152-406); RBC Red Blood Cell Count 4.07 M/uL (4.33-5.43); Red Cell Distribution Width 13.2 % (12.1-15.2)
[2024-08-12 20:21] LABS: Influenza A Ag Negative; Influenza B Ag Negative; SARS-CoV-2 Antigen Rapid Res Negative (Negative)
[2024-08-12 20:25] LABS: Anion Gap 4.1 mEq/L (5.0-15.0); Potassium 4.1 mEq/L (3.5-5.1)
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
[2024-08-12] MEDS ORDERED: AZITHROMYCIN 250 MG TAB ONE (21:29)
[2024-08-12] MEDS ORDERED: predniSONE 20 MG TAB ONE (21:29)
[2024-08-12 22:19] VITALS: BP 139/93; TEMP 98.7; O2SAT 100
== END 2024-08-12 21:41 | disposition home or self-care (01) ==
LOC: ER 18:57
DX: R04.2 Hemoptysis (principal); R07.0 Pain in throat; F17.210 Nicotine dependence, cigarettes, uncomplicated; Z11.52 Encounter for screening for COVID-19
CPT/HCPCS: 36415; 71046; 80048; 85025; 87070; 87428; J7030; J7512; J7613; J7644